=== PATIENT | male | born 1990 | race Caucasian/White ===

== ENCOUNTER 2016-12-05 07:40 | Emergency (ER) | payer SELFPAY ==
[~2016-12-05] VITALS: Ht 182.9 cm; Wt 58.0 kg
[~2016-12-05 07:40] MED LIST: BENTYL10 MG PO; BUSPAR PO; DEPAKOTE ER (E500 MG PO; DEPAKOTE ER250 MG PO; DEPAKOTE ER500 MG PO; DEPAKOTE500 MG PO; DIVALPROEX SOD500 MG PO; IBUPROFEN600 MG PO; LATUDA20 MG PO; NAPROSYN500 MG PO; NON-ASPIRIN PA325 MG PO; NORCO 5/3251 TABLET PO; PEPCID20 MG PO; QUETIAPINE FUMA50 MG PO; TRAMADOL HCL50 MG PO; ULTRAM50 MG PO; ZANTAC300 MG PO; ZOFRAN ODT4 MG PO; ZYPREXA10 MG PO; ZYPREXA15 MG PO; ZYPREXA5 MG PO
[2016-12-05 11:21] VITALS: BP 116/73
== END 2016-12-05 11:21 | disposition home or self-care (01) ==
LOC: EME 07:40
DX: R51 Headache (principal); R07.9 Chest pain, unspecified; R42 Dizziness and giddiness; R11.0 Nausea; Z87.891 Personal history of nicotine dependence
CPT/HCPCS: 93005; 99281; 99284; J1200; J1885; J2765; J7030

== ENCOUNTER 2017-01-30 20:01 | Emergency (ER) | payer OTHER ==
[~2017-01-30] VITALS: Ht 190.5 cm; Wt 62.5 kg
[2017-01-30] MEDS ORDERED: MOTRIN800 MG PO (21:01)
[2017-01-30 21:27] VITALS: BP 134/92
== END 2017-01-30 21:27 | disposition home or self-care (01) ==
LOC: EME 20:01
DX: Z77.098 Contact with and (suspected) exposure to other hazardous, chiefly nonmedicinal, chemicals (principal); H53.8 Other visual disturbances; H57.13 Ocular pain, bilateral; R51 Headache; R11.0 Nausea; Z87.891 Personal history of nicotine dependence
CPT/HCPCS: 99281; 99284

== ENCOUNTER 2017-03-01 15:52 | Emergency (ER) | payer OTHER ==
[~2017-03-01] VITALS: Ht 190.5 cm; Wt 58.4 kg
[~2017-03-01 15:52] MED LIST changes: +MOTRIN800 MG PO
[2017-03-01] MEDS ORDERED: AUGMENTIN875 MG PO (17:08)
[2017-03-01 17:39] VITALS: BP 126/69
== END 2017-03-01 17:40 | disposition home or self-care (01) ==
LOC: EME 15:52
DX: I89.1 Lymphangitis (principal); F31.9 Bipolar disorder, unspecified; Z87.891 Personal history of nicotine dependence
CPT/HCPCS: 99281; 99283

== ENCOUNTER 2017-05-14 13:30 | Emergency (ER) | payer OTHER ==
[~2017-05-14] VITALS: Ht 190.5 cm; Wt 69.4 kg
[~2017-05-14 13:30] MED LIST changes: +AUGMENTIN875 MG PO
[2017-05-14] MEDS ORDERED: ULTRAM50 MG PO (15:12)
[2017-05-14] MEDS ORDERED: PEN-VEE K,VEET500 MG PO (15:12)
[2017-05-14 15:24] VITALS: BP 133/79
== END 2017-05-14 15:25 | disposition home or self-care (01) ==
LOC: EME 13:30
DX: K02.9 Dental caries, unspecified (principal); Z88.8 Allergy status to other drugs, medicaments and biological substances; Z88.2 Allergy status to sulfonamides
CPT/HCPCS: 99281; 99283

== ENCOUNTER 2017-05-19 04:34 | Emergency (ER) | payer OTHER ==
[~2017-05-19] VITALS: Ht 193 cm; Wt 63.7 kg
[~2017-05-19 04:34] MED LIST changes: +PEN-VEE K,VEET500 MG PO
[2017-05-19] MEDS ORDERED: CLEOCIN300 MG PO (05:21)
[2017-05-19 05:36] VITALS: BP 128/82
== END 2017-05-19 05:37 | disposition home or self-care (01) ==
LOC: EME 04:34
PROC: 3E0T3BZ Introduction of Anesthetic Agent into Peripheral Nerves and Plexi, Percutaneous Approach (ICD-10-PCS; principal; 2017-05-19)
DX: K08.89 Other specified disorders of teeth and supporting structures (principal); F17.200 Nicotine dependence, unspecified, uncomplicated
CPT/HCPCS: 99281; 99283